=== PATIENT | female | born 1965 | race Caucasian/White ===

== ENCOUNTER → 2023-05-26 08:39 | Outpatient (REF) | payer BC, SELFPAY | LOC: RAD 08:39 | PROVIDERS: ATTENDING PHYSICIAN Obstetrics & Gynecology Gynecology; FAMILY PHYSICIAN Physician Assistant Medical | DX: R10.2 Pelvic and perineal pain (principal) | CPT/HCPCS: 76830; 76856 ==

== ENCOUNTER → 2023-06-29 18:12 | Outpatient (REF) | payer BC, SELFPAY | LOC: PAVMRI 18:12 | PROVIDERS: ATTENDING PHYSICIAN Orthopaedic Surgery; FAMILY PHYSICIAN Physician Assistant Medical | DX: S92.011 Displaced fracture of body of right calcaneus (principal); M79.671 Pain in right foot | CPT/HCPCS: 73721 ==

== ENCOUNTER 2023-09-06 12:21 | Emergency (ER) | payer BC, SELFPAY ==
[2023-09-06 12:23] VITALS: BP 163/96; BMI 35.7
[2023-09-06 13:26] LABS: % Basophils 1.2 % (0-2); % Eosinophils 3.2 % (0-6); % Immature Granulocytes 0.3 % (0-0.5); % Lymphocytes 28.8 % (20.5-51.1); % Monocytes 6.9 % (1.7-9.3); % Neutrophils 59.6 % (42.2-75.2); Absolute Basophils 0.1 10^3/uL (0-0.2); Absolute Eosinophils 0.2 10^3/uL (0-0.7); Absolute Lymphocytes 1.7 10^3/uL (1.2-3.4); Absolute Monocytes 0.4 10^3/uL (0.1-0.6); Absolute Neutrophils 3.5 10^3/uL (1.4-6.5); Hematocrit 39.6 % (37.0-47.0); Hemoglobin 13.8 g/dL (12.0-16.0); Mean Corp Hgb Conc. 34.8 g/dL (33.0-37.0); Mean Corpuscular Hgb 31.9 pg (27.0-31.0); Mean Corpuscular Volume 91.7 fL (81.0-99.0); Mean Platelet Volume 9.7 fL (7.4-10.4); Nucleated Red Blood Cells % 0 %; Platelet Count 261 10^3/uL (130-400); Red Blood Cell Count 4.32 10^6/uL (4.20-5.40); Red Cell Dist. Width 13.2 % (11.5-14.5); White Blood Cell Count 5.9 10^3/uL (4.8-10.8)
[2023-09-06 13:39] LABS: ALT (SGPT) 16 U/L (0-35); AST (SGOT) 23 U/L (14-36); Albumin 4.3 g/dl (3.5-5.0); Alkaline Phosphatase 90 U/L (38-126); Blood Urea Nitrogen 16 mg/dl (7-17); Calcium 9.5 mg/dl (8.4-10.2); Carbon Dioxide 29 mmol/L (22-30); Chloride 105 mmol/L (98-107); Estimated Creatinine Clearance 89 ml/min; Glucose 99 mg/dl (70-99); Potassium 4.3 mmol/L (3.5-5.1); Sodium 138 mmol/L (135-145); Total Bilirubin 0.6 mg/dl (0.2-1.3); Total Protein 7.3 g/dl (6.3-8.2); eGFR > 60.00
[2023-09-06] MEDS: NSS 1000 IV (13:56)
[2023-09-06] MEDS: TORADOL 15 MG IV (13:56)
[2023-09-06 14:02] LABS: Urine Albumin Negative (Neg - Trace); Urine Bilirubin Negative (Negative); Urine Character Clear (Clear); Urine Color Yellow; Urine Glucose Negative (Negative); Urine Ketone Negative (Negative); Urine Leukocyte Negative (Negative); Urine Nitrite Negative (Negative); Urine Occult Blood Negative (Negative); Urine Urobilinogen Negative (Neg - 1+)
--- NOTE | 2023-09-06 14:16 | ED.GENMED ---
History of Present Illness
General
Chief Complaint: Flank Pain
Source: patient
Exam Limitations: none
Time Seen by Provider: 09/06/23 13:25
Nursing documentation reviewed up to this point in time: agreed with
Travel History
Have you had any contact with someone who has COVID-19?: No
Do you have any symptoms of coronavirus? Fever > 100 degrees, chills, cough, shortness of breath, sore throat, loss of taste or smell, muscle aches, or headache?: No
History of Present Illness
History of Present Illness:
58-year-old female with a history of interstitial cystitis presents for right-sided back pain over the last 4 days. Patient says it started when she was out to lunch with her friend. She says she sat back in the chair and thought maybe she tweaked
her back. It was not severe but mild at the time. She was able to sleep okay and the next day had intermittent episodes where it felt sore. She thinks it has been mostly positional but also cannot recall if she has had spontaneous episodes of
pain like a colicky pain without movement. Last night she had trouble sleeping. She took an Advil at 11 p.m. and then again another dose of Tyle Advil nol PM at 2 AM
She has not had a rash, trouble breathing, cough, dysuria new from her baseline interstitial cystitis symptoms which are pretty well-controlled at the moment, hematuria, abdominal pain, nausea, vomiting, diarrhea. She has had a kidney stone once
previously which was infected
Patient required a nephrostomy but does not have it now
Past History
Past History
ED Past Medical History: GERD and Psychiatric (anxiety)
ED Past Surgical History: None
Social History
Tobacco: Former smoker
Alcohol: Occasional
Drug: None
Personal:
Living: with family
Employment: Employed
Family History
Family History: Other
Review of Systems
Review of Systems
Allergies reviewed?: Yes
All Other Systems: Not applicable
Phy Exam
Physical Exam
Physical Exam:
GENERAL: Alert, comfortable
Neck: supple
CARDIAC: Regular rate and rhythm .
LUNGS: Clear breath sounds bilaterally, no acute respiratory distress, no wheezes/rales/rhonchi
ABDOMEN: Soft, normal bowel sounds, nondistended, right flank/CVA mild tenderness, no guarding, no rebound, neg christine's
back: right sided lateral thoracic back tendernes, cva region, no rash
able to take deep breaths
no signs of dyspnea
NEUROLOGICAL: Alert and oriented, no focal neuro deficits
SKIN: Warm and dry, skin intact.
PSYCH: Normal and appropriate interaction.
Course
Orders/Labs/Results
Orders:
Orders
09/06/23 13:09
Complete Blood Count/With Diff Urgent
Comprehensive Metabolic Panel Urgent
Urinalysis Reflex To Culture Urgent
Date Specimen was Collected: 09/06/23
Time Specimen was Collected: 13:08
09/06/23 13:43
0.9% Sodium Chloride 1000 ml [Nss] 1,000 ml IV BOLUS
Ketorolac [Toradol] 15 mg IV NOW STA
09/06/23 13:44
CT Abd/pel Without Iv Or Oral Urgent
Comment:
Reason For Exam: right flank pain x 2 days
09/06/23 14:08
CR Chest - 2 Views Urgent
Comment:
Reason For Exam: right flank pain/mid bakc pain
Abnormal Lab Results
09/06/23
13:09
MCH 31.9 H pg
(27.0-31.0)
09/06/23 13:09
09/06/23 13:09
Vital Signs
Initial and Last Documented VS:
Initial Vital Signs
Temp Pulse Resp BP Pulse Ox
97.6 F 68 16 163/96 98
09/06/23 12:23 09/06/23 12:23 09/06/23 12:23 09/06/23 12:23 09/06/23 12:23
Last Documented Vital Signs
Temp Pulse Resp BP Pulse Ox
98.1 F 56 17 152/76 98
09/06/23 16:36 09/06/23 16:36 09/06/23 16:36 09/06/23 16:36 09/06/23 16:36
MDM/Problems Addressed
Differential Diagnosis Includes:
kidney stone, msk back pain, pleural effusion/pna, choellithaisis
MDM/Problems Addressed:
58 y/o F with h/o gerd, barretts
has had kidney stone previously requiring nephrostomy (spesis)
here with right back pain a few days agoi while sitting at lunch
she thought maybe she tweaked her back
It has come and gone slightly since then but is somewhat positional, worse with movement. She is not having chest pain or shortness of breath, urinary symptoms new from her baseline interstitial cystitis which is well-controlled by diet. She has
not had a rash. There is no trauma. She is not having a cough or wheezing. Patient does say what makes it worse is twisting and movement
She has no risk factors for DVT or PE.
Patient's workup here was unremarkable with normal lab work, negative UA, and a CT stone search that showed no findings to explain the cause of her pain. I do suspect it is muscular. Will add muscle relaxers because she feels like she is getting
spasms at times, take Tylenol
Return precautions PERC negative
*Critical Care Note
Total Time (30-74mins, 75-104mins- exclusive of procedures): Not Applicable
ED Attending Note
-
Portions of this chart may have been created with voice recognition software.� Occasional wrong word or��sound alike� substitutions may have occurred due to the inherent limitations of voice recognition software.
Discharge Plan
Departure
Patient Disposition: Home (Routine Discharge)
Date of Disposition: 06/02/24
Time of Disposition: 16:26
Patient with high blood pressure during this ER visit?: Yes
Condition: Fair
Covid-19: Not Applicable
Discharge Problem:
Acute flank pain
Instructions: Flank Pain (DC)
Prescriptions:
New
cyclobenzaprine 10 mg tablet
10 mg PO HS PRN (Reason: muscle spasm) Qty: 5 0RF
lidocaine 5 % adhesive patch,medicated
1 patch topical DAILY PRN (Reason: BACK PAIN) Qty: 15 0RF
No Action
citalopram 20 MG tablet
20 mg PO HS
omeprazole 40 MG capsule,delayed release(DR/EC)
40 mg PO DAILY
diphenhydramine-acetaminophen [Tylenol PM Extra Strength] 1 EACH tablet
1 tab PO HS PRN (Reason: sleep)
pseudoephedrine HCl [Sudafed] 30 mg Tablet
30 mg PO Q4H PRN (Reason: congestion)
hydroxyzine HCl 25 mg tablet
25 mg PO TID PRN (Reason: panic)
amoxicillin-pot clavulanate 875-125 mg tablet
1 tab PO BID
simethicone 80 mg Tablet,Chewable
80 mg PO DAILY PRN (Reason: gas)
Advil PM 200-38 mg Tablet
1 cap PO HS PRN (Reason: sleep)
melatonin 10 mg Tablet
10 mg PO HS PRN (Reason: sleep)
acetaminophen [acetaminophen] 325 mg tablet
650 mg PO Q6HPRN PRN (Reason: mild pain) Qty: 14 0RF
tramadol 50 mg tablet
25 mg PO Q6HPRN PRN (Reason: severe pain/breakthrough pain) Qty: 8 0RF
ibuprofen 600 mg tablet
600 mg PO Q6H PRN (Reason: pain) Qty: 14 0RF
Referrals:
UNKNOWN - PT DOES,NOT KNOW [Family Provider] -
Activity Restrictions/Additional Instructions:
WE ARE NOT SURE THE CAUSE OF YOUR BACK PAIN
YOU HAD NO CONCERNING FINDINGS ON YOUR BLODO WORK OR CAT SCAN
THIS COULD BE MUSCULAR
TRY TYLENOL EVYER 6 HORUS NEEDED
MOTRIN EVERY 8 HOURS NEEDED
LIDOCAINE PATCH 12 HOURS ON 12 HOURS OFF
WHEN THE PATCH IS OFF YOU CAN APPLY ICE OR HEAT
[facility] FOR MUSCLE RELAXATION
RETURN FOR: CHEST PAIN, shortness of breath, worsening pain, inability to breathe, fever or chills, rash or any concerns.
Interventions
Interventions:
*Risk Screen - Suicide Last Done: 09/06/23 12:23
*General Assessment Last Done: 09/06/23 13:16
*Neglect/Abuse Screening Last Done: 09/06/23 12:23
ED- Fall Risk Assessment Last Done: 09/06/23 12:23
*ED COVID-19 Vaccine History Last Done: 09/06/23 13:15
*Nursing Disposition Last Done: 09/06/23 16:45
DQ-Drtrac-Tfwjhwhmmt Assessment Last Done: 09/06/23 13:18
ED-Female Genitourinary Assessment Last Done: 09/06/23 13:18
Discharge Date and Time
Discharge Date/Time: 09/06/23 16:45
Print Language: YAKUT
[2023-09-06 16:36] VITALS: BP 152/76
== END 2023-09-06 16:45 | disposition home or self-care (01) ==
LOC: EMR 12:21
PROVIDERS: Emergency Medicine; EMERGENCY PHYSICIAN Emergency Medicine
DX: R10.9 Unspecified abdominal pain (principal); M54.9 Dorsalgia, unspecified; R03.0 Elevated blood-pressure reading, without diagnosis of hypertension; N30.10 Interstitial cystitis (chronic) without hematuria; K21.9 Gastro-esophageal reflux disease without esophagitis; F41.9 Anxiety disorder, unspecified; K22.70 Barrett's esophagus without dysplasia; Z87.442 Personal history of urinary calculi; Z87.891 Personal history of nicotine dependence; Z87.01 Personal history of pneumonia (recurrent); Z86.16 Personal history of COVID-19
CPT/HCPCS: 99284; 96374; 96361; 71046; 74176; 80053; 81003; 85025

== ENCOUNTER → 2024-01-30 06:23 | Outpatient (REF) | payer OTHER, SELFPAY | LOC: MRI 3T 06:23 | PROVIDERS: ATTENDING PHYSICIAN Student in an Organized Health Care Education/Training Program; FAMILY PHYSICIAN Physician Assistant Medical | DX: M25.571 Pain in right ankle and joints of right foot (principal) | CPT/HCPCS: 73721 ==

== ENCOUNTER 2024-02-01 06:19 | Day surgery (SDC) | payer OTHER, SELFPAY ==
--- NOTE | 2024-01-28 10:41 | VNURNOTE ---
Home Health Liaison spoke with patient to discuss [facility] nurse/therapy, visits, schedule and homebound status. Patient is agreeable and understands that visits at home will be 2-3 x per week to assess and teach medical management. Plan is for [facility] on
01/31 R foot subtlar joint fusion, graft w/Dr Chapman. Patient is aware that [facility] will contact them for start of care in 1-2 days after discharge from .
[facility] referral completed in Care Port.
[2024-02-01] VITALS (11 sets, daily range): BP systolic 86–155; BP diastolic 59–81; BMI 37.0
[2024-02-01] MEDS: CELEBREX 200 MG PO (09:58)
[2024-02-01] MEDS: TYLENOL 1000 MG PO (09:58)
[2024-02-01] MEDS: EMEND 40 MG PO (09:58)
[2024-02-01] MEDS: DILAUDID 0.5 MG IV ×2 (14:19→14:35)
== END 2024-02-01 16:42 | disposition home or self-care (01) ==
LOC: SDS 06:19
PROVIDERS: ATTENDING PHYSICIAN Student in an Organized Health Care Education/Training Program
DX: M19.071 Primary osteoarthritis, right ankle and foot (principal); S92.011 Displaced fracture of body of right calcaneus; M25.571 Pain in right ankle and joints of right foot; V49.9XXD Car occupant (driver) (passenger) injured in unspecified traffic accident, subsequent encounter
CPT/HCPCS: 28725; 73630; 76000

== ENCOUNTER 2024-03-31 09:46 | Outpatient (RCR) | payer OTHER, SELFPAY | END 2024-03-31 23:59 | disposition home or self-care (01) | LOC: RPT 09:46 | PROVIDERS: ATTENDING PHYSICIAN Student in an Organized Health Care Education/Training Program; FAMILY PHYSICIAN Physician Assistant Medical | DX: S92.011 Displaced fracture of body of right calcaneus (principal); X58.XXXD Exposure to other specified factors, subsequent encounter; Z73.6 Limitation of activities due to disability | CPT/HCPCS: 97010; 97110; 97116; 97140; 97162 ==

== ENCOUNTER 2024-04-27 15:07 | Outpatient (RCR) | payer OTHER, SELFPAY | END 2024-04-27 23:59 | disposition home or self-care (01) | LOC: RPT 15:07 | PROVIDERS: ATTENDING PHYSICIAN Student in an Organized Health Care Education/Training Program; FAMILY PHYSICIAN Physician Assistant Medical | DX: S92.011 Displaced fracture of body of right calcaneus (principal); X58.XXXD Exposure to other specified factors, subsequent encounter; Z73.6 Limitation of activities due to disability; M62.81 Muscle weakness (generalized); R26.2 Difficulty in walking, not elsewhere classified | CPT/HCPCS: 97010; 97110; 97112; 97116; 97140; 97530 ==

== ENCOUNTER 2024-05-25 15:23 | Outpatient (RCR) | payer OTHER, SELFPAY | END 2024-05-25 23:59 | disposition home or self-care (01) | LOC: RPT 15:23 | PROVIDERS: ATTENDING PHYSICIAN Student in an Organized Health Care Education/Training Program; FAMILY PHYSICIAN Physician Assistant Medical | DX: S92.011 Displaced fracture of body of right calcaneus (principal); X58.XXXD Exposure to other specified factors, subsequent encounter; Z73.6 Limitation of activities due to disability; M62.81 Muscle weakness (generalized); R26.2 Difficulty in walking, not elsewhere classified | CPT/HCPCS: 97110; 97112; 97530 ==

== ENCOUNTER → 2024-07-21 13:56 | Outpatient (REF) | payer OTHER, SELFPAY | LOC: HWRAD 13:56 | PROVIDERS: ATTENDING PHYSICIAN Student in an Organized Health Care Education/Training Program; FAMILY PHYSICIAN Physician Assistant Medical | DX: M19.079 Primary osteoarthritis, unspecified ankle and foot (principal) | CPT/HCPCS: 73700 ==

== ENCOUNTER → 2024-08-25 19:39 | Outpatient (REF) | payer OTHER, SELFPAY | LOC: WDC 19:39 | PROVIDERS: ATTENDING PHYSICIAN Obstetrics & Gynecology Gynecology; FAMILY PHYSICIAN Physician Assistant Medical | DX: Z12.31 Encounter for screening mammogram for malignant neoplasm of breast (principal) | CPT/HCPCS: 77063; 77067 ==

== ENCOUNTER → 2024-12-25 13:28 | Outpatient (REF) | payer OTHER, SELFPAY | LOC: PAVMRI 13:28 | PROVIDERS: ATTENDING PHYSICIAN Student in an Organized Health Care Education/Training Program; FAMILY PHYSICIAN Physician Assistant Medical | DX: S92.011 Displaced fracture of body of right calcaneus (principal) | CPT/HCPCS: 73721 ==

== ENCOUNTER → 2025-01-02 15:54 | Outpatient (REF) | payer OTHER, SELFPAY ==
[2025-01-02 16:50] LABS: Hematocrit 40.4 % (37.0-47.0); Hemoglobin 13.6 g/dL (12.0-16.0); Mean Corp Hgb Conc. 33.7 g/dL (33.0-37.0); Mean Corpuscular Volume 91.8 fL (81.0-99.0); Nucleated Red Blood Cells % 0 %; Platelet Count 257 10^3/uL (130-400); Red Cell Dist. Width 12.6 % (11.5-14.5)
[2025-01-02 17:04] LABS: Blood Urea Nitrogen 18 mg/dl (7-17); Calcium 9.4 mg/dl (8.4-10.2); Carbon Dioxide 28 mmol/L (22-30); Chloride 105 mmol/L (98-107); Glucose 95 mg/dl (70-99); Potassium 4.4 mmol/L (3.5-5.1); Sodium 139 mmol/L (135-145); eGFR 57.52
== END ==
LOC: RCS 15:54
PROVIDERS: ATTENDING PHYSICIAN Student in an Organized Health Care Education/Training Program; FAMILY PHYSICIAN Physician Assistant Medical
DX: Z01.818 Encounter for other preprocedural examination (principal)
CPT/HCPCS: 36415; 80048; 85025; 93005